=== PATIENT | female | born 1940 | race Caucasian/White ===

== ENCOUNTER 2019-12-11 09:50 | Inpatient (IN) | payer OTHER, MEDICAID ==
[2019-12-10 20:00] VITALS: BP_SYST 134
[~2019-12-11] VITALS: Ht 157.5 cm; Wt 73.5 kg
[~2019-12-11 09:50] MED LIST: APIX2.5T PO; CEPH-568 PO; METO25TA6 PO; [UNRECOGNIZED DRUG - OTHER] OP
[2019-12-11 10:00] VITALS: BP_SYST 148
--- NOTE | 2019-12-11 10:13 | NUR ---
Alton Parks at bedside examining patient.
--- NOTE | 2019-12-11 10:15 | NUR ---
took pt to CT scan via josias
[2019-12-11] MEDS ORDERED: NS 500 ML IV ONE (11:00)
[2019-12-11] MEDS ORDERED: PANTOPRAZOLE SODIUM 40 MG/VIAL (PROTONIX) IVP ONE (11:15)
--- NOTE | 2019-12-11 11:30 | NUR ---
pt is refusing to have an IV placed.
--- NOTE | 2019-12-11 11:54 | NUR ---
Pt is able to intake fluids w/out any chocking or difficulty.
[2019-12-11 12:11] LABS: BASOPHILS # (AUTO) 0.1 K/uL (0.0-0.2); BASOPHILS % (AUTO) 0.7 % (0.0-2.0); EOSINOPHILS % (AUTO) 0.5 % (0.0-4.0); HEMOGLOBIN 12.5 g/dL (12.0-16.0); LYMPHOCYTES # (AUTO) 1.3 K/uL (1.0-5.5); LYMPHOCYTES % (AUTO) 17.3 % (20.5-51.5); MEAN CORPUSCULAR HEMOGLOBIN 29 pg (27-31); MEAN CORPUSCULAR HGB CONC 33 % (32-36); MEAN CORPUSCULAR VOLUME 89 fL (79.0-98.0); MONOCYTES # (AUTO) 0.5 K/uL (0.0-1.0); MONOCYTES % (AUTO) 6.5 % (1.7-9.3); NEUTROPHILS # (AUTO) 5.7 K/uL (1.8-7.7); PLATELET COUNT (AUTO) 262 K/uL (130-430); RED BLOOD CELL COUNT(AUTO) 4.25 MIL/uL (4.2-6.2); RED CELL DISTRIBUTION WIDTH 14.7 % (9.0-15.0); WHITE BLOOD COUNT (AUTO) 7.6 K/uL (4.8-10.8)
[2019-12-11 12:25] LABS: ANION GAP 7 (5-15); CALCIUM 8.8 mg/dL (8.4-11.0); CHLORIDE 106 mmol/L (98-107); CREATININE 0.87 mg/dL (0.55-1.30); GLUCOSE 99 mg/dL (70-99); POTASSIUM 3.4 mmol/L (3.5-5.1); SODIUM SERUM 140 mmol/L (136-145); UREA NITROGEN, BLOOD 15 mg/dL (8-21)
[2019-12-11 12:31] LABS: ALANINE AMINOTRANSFERASE 20 U/L (12-78); ALBUMIN 3.3 g/dL (3.4-4.8); ASPARTATE AMINOTRANSFERASE 17 U/L (10-37); TOTAL BILIRUBIN 0.6 mg/dL (0.0-1.0)
--- NOTE | 2019-12-11 12:40 | NUR ---
# 22 gauge angiocath placed to lac. Use of asceptic technique. Opsite placed over site. Blood return noted. Blood for lab drawn from site. Flushed with 10 cc of normal saline. No evidence of infiltration noted. Patient tolerated well.
[2019-12-11] MEDS ORDERED: ASPIRIN 81 MG TAB.CHEW PO ONE (12:45)
--- NOTE | 2019-12-11 13:00 | NUR ---
NS 500ml infusing per MD order
--- NOTE | 2019-12-11 14:00 | NUR ---
assisted the pt w/ the bed seay
[2019-12-11 14:10] LABS: BILIRUBIN,URINE NEGATIVE (NEGATIVE); BLOOD, URINE NEGATIVE (NEGATIVE); CLARITY/URINE CLEAR (CLEAR); COLOR,URINE YELLOW (YELLOW); GLUCOSE,URINE NEGATIVE (NEGATIVE); KETONES,URINE NEGATIVE (NEGATIVE); LEUKOCYTE ESTERASE ,URINE TRACE (NEGATIVE); NITRITE, URINE NEGATIVE (NEGATIVE); PROTEIN URINE NEGATIVE (NEGATIVE); UROBILINOGEN,URINE 0.2 (0.2-1.0)
[2019-12-11 14:28] LABS: BACTERIA,URINE RARE /HPF (None Seen); RBC,URINE 0-3 /HPF (0-3); WBC,URINE 0-3 /HPF (0-3)
[2019-12-11] MEDS ORDERED: METOPROLOL TARTRATE 25 MG TABLET PO ONE ×2 (14:30→19:00)
--- NOTE | 2019-12-11 15:00 | NUR ---
pt will be admitted under the care of Dr. Addison. Orders received. Waiting for a tele bed
--- NOTE | 2019-12-11 16:15 | NUR ---
Medication reconciliation completed with information provided by pt. Any prior medication reconciliation on file was reviewed and corrected.
--- NOTE | 2019-12-11 16:41 | NUR ---
ADMIT NOTE Received pt from ER to the floor with a diagnosis of ELEVATED TROP. Admission process initiated. patient oriented to pain management, safety and call light-teach back done.
--- NOTE | 2019-12-11 16:45 | NUR ---
Patient will be admitted to care of Dr. Paulino. Admitted to tele unit. Will go to room 103-a. Belongings list completed. Complete and up to date summary report printed. Bedside report given to Shaniqua. IV is on the Left AC 22g, patent and infusing well. All belongings transported with the pt.
[2019-12-11 19:00] VITALS: BP_SYST 134
[2019-12-11 20:00] VITALS: BP_SYST 134
--- NOTE | 2019-12-11 20:00 | NUR ---
Initial note: Received report from dayshift RN. Patient is awake in bed, no acute distress. Even and unlabored breathing on room air. IV site to left AC, 22 gauge intact. Call light is with patient. Safety, fall, aspiration precautions in place. Will continue with plan of care.
[2019-12-11 20:25] LABS: CHOLESTEROL 191 mg/dL (<200); HDL CHOLESTEROL 67 mg/dL (>55); LDL CHOLESTEROL 107 mg/dL (<100); TRIGLYCERIDES 56 mg/dL (30-150)
[2019-12-11] MEDS: APIXABAN 2.5 MG TABLET PO SCH (20:31)
--- NOTE | 2019-12-11 22:05 | NUR ---
Bedpan: Assisted patient with bedpan, patient able to void 300 ML yellow urine. Patient kept clean and dry. Call light with patient. Will continue monitoring.
[2019-12-12 00:17] VITALS: BP_SYST 121
--- NOTE | 2019-12-12 00:58 | NUR ---
Rounds: Patient is asleep, no acute distress. Even, unlabored breathing on room air. IV site intact. Call light with patient. Will continue monitoring.
[2019-12-12 03:32] LABS: BASOPHILS # (AUTO) 0.1 K/uL (0.0-0.2); BASOPHILS % (AUTO) 1.1 % (0.0-2.0); EOSINOPHILS # (AUTO) 0.2 K/uL (0.0-0.4); EOSINOPHILS % (AUTO) 3.2 % (0.0-4.0); HEMATOCRIT 33.9 % (36-48); HEMOGLOBIN 11.3 g/dL (12.0-16.0); LYMPHOCYTES # (AUTO) 1.5 K/uL (1.0-5.5); LYMPHOCYTES % (AUTO) 27.4 % (20.5-51.5); MEAN CORPUSCULAR HEMOGLOBIN 30 pg (27-31); MEAN CORPUSCULAR HGB CONC 34 % (32-36); MEAN CORPUSCULAR VOLUME 90 fL (79.0-98.0); MONOCYTES # (AUTO) 0.5 K/uL (0.0-1.0); MONOCYTES % (AUTO) 9.3 % (1.7-9.3); NEUTROPHILS # (AUTO) 3.3 K/uL (1.8-7.7); PLATELET COUNT (AUTO) 217 K/uL (130-430); RED BLOOD CELL COUNT(AUTO) 3.77 MIL/uL (4.2-6.2); RED CELL DISTRIBUTION WIDTH 14.3 % (9.0-15.0); WHITE BLOOD COUNT (AUTO) 5.5 K/uL (4.8-10.8)
--- NOTE | 2019-12-12 03:37 | NUR ---
Incontinence care: Patient urinated onto pad underneath. Partial bed bath and linen change rendered. Patient tolerated well. Call light with patient. Will continue to monitor.
[2019-12-12 03:42] LABS: INR 1.1 (0.8-1.2); PROTHROMBIN TIME 10.6 SECS (9.5-12.5)
[2019-12-12 03:55] LABS: ALANINE AMINOTRANSFERASE 16 U/L (12-78); ALBUMIN 2.6 g/dL (3.4-4.8); ANION GAP 3 (5-15); ASPARTATE AMINOTRANSFERASE 16 U/L (10-37); CALCIUM 8.2 mg/dL (8.4-11.0); CHLORIDE 107 mmol/L (98-107); CREATININE 0.77 mg/dL (0.55-1.30); GLUCOSE 97 mg/dL (70-99); POTASSIUM 3.4 mmol/L (3.5-5.1); SODIUM SERUM 140 mmol/L (136-145); THYROID STIMULATING HORMONE 3.22 uIu/mL (0.36-3.74); TOTAL BILIRUBIN 0.6 mg/dL (0.0-1.0); UREA NITROGEN, BLOOD 13 mg/dL (8-21)
--- NOTE | 2019-12-12 06:06 | NUR ---
Closing note: Patient is resting in bed, no acute distress. Tolerating room air. IV site to left AC patent, intact. All needs met. Safety, fall, aspiration precautions observed. Hourly rounding performed throughout shift. Will endorse care to dayshift RN.
[2019-12-12 08:55] VITALS: BP_SYST 137
[2019-12-12] MEDS: METOPROLOL TARTRATE 25 MG TABLET PO SCH ×3 (09:00→21:00)
[2019-12-12] MEDS ORDERED: POTASSIUM CHLORIDE 20 MEQ TAB.PRT.SR PO ONE (09:00)
[2019-12-12] MEDS: ASPIRIN 81 MG TAB.CHEW PO SCH (09:03)
[2019-12-12] MEDS: APIXABAN 2.5 MG TABLET PO SCH ×2 (09:05→21:00)
--- NOTE | 2019-12-12 09:05 | NUR ---
Routine Schedule medications given per order. Patient resting comfortably in bed with no complaint of pain. Patient stable at this time.
--- NOTE | 2019-12-12 09:30 | NUR ---
Routine Ordered med given. Patient stable.
--- NOTE | 2019-12-12 10:45 | NUR ---
Nutrition Update Familia Scale 17 noted. Pt admitted for elevated troponin. Diet: 2 gm Na BMI: 29.6 kg/m2 RD to follow per nutrition care standards.
[2019-12-12 11:18] VITALS: BP_SYST 149
--- NOTE | 2019-12-12 14:00 | NUR ---
Routine Patient resting comfortably in bed with no complaint of pain or discomfort. Patient stable at this time.
--- NOTE | 2019-12-12 15:30 | NUR ---
Routine Patient resting quietly in bed with no distress noted; no complaint of pain or distress. Patient stable at this time.
[2019-12-12 15:53] VITALS: BP_SYST 151
--- NOTE | 2019-12-12 17:10 | NUR ---
Routine Patient resting in bed with complaint of 4/10 back pain. Patient states that she does not want pain medication, because her pain is due to a UTI. She does have a history of UTI, but WBC count today is 5.5 (down from 7.6 yesterday). Patient stable at this time. Addendum: 12/12/19 at 1748 by Camila Alston RN urinalysis (-), and urine culture in still in process
--- NOTE | 2019-12-12 18:30 | NUR ---
Routine Patient resting in bed with night ANDROID PROGRAMMER at bedside. Patient stable throughout shift.
--- NOTE | 2019-12-12 19:44 | NUR ---
Initial note: Report received from dayshift RN. Patient is resting in bed. Does not show any acute distress. Tolerating room air, even and unlabored respirations. IV site to left AC is patent and benign. No needs at this time. Call light is with patient. Safety, fall, aspiration precautions in place. Will continue with plan of care.
[2019-12-12 20:46] VITALS: BP_SYST 123
--- NOTE | 2019-12-12 21:46 | NUR ---
Medications refused: Patient is oriented to name, place, and situation. Patient refused to receive medications scheduled for 2100 despite educational efforts. Blood pressure and heart rate WNL. Call light with patient. Will continue to monitor.
--- NOTE | 2019-12-13 00:14 | NUR ---
Rounds: Patient is asleep, no acute distress. Even, unlabored breathing on room air. IV site intact. Call light with patient. Will continue monitoring.
[2019-12-13 01:00] VITALS: BP_SYST 115
--- NOTE | 2019-12-13 03:21 | NUR ---
Rounds: Patient is asleep in bed, no acute distress. Tolerating room air, even and unlabored breathing. IV site to left AC is intact. Call light is with patient. Will continue monitoring.
--- NOTE | 2019-12-13 06:02 | NUR ---
Closing note: Patient is resting in bed, no acute distress. No change in condition. All needs met. Safety, fall, aspiration precautions in place. Hourly rounds performed throughout shift. Will endorse care to dayshift RN.
[2019-12-13] MEDS: METOPROLOL TARTRATE 25 MG TABLET PO SCH (08:37)
[2019-12-13] MEDS: APIXABAN 2.5 MG TABLET PO SCH (08:37)
[2019-12-13] MEDS: ASPIRIN 81 MG TAB.CHEW PO SCH (08:37)
--- NOTE | 2019-12-13 08:39 | NUR ---
Routine Scheduled medications given per order. Patient resting comfortably in bed with no complaint of pain. Patient stable at this time.
[2019-12-13 08:40] VITALS: BP_SYST 132
[2019-12-13 10:41] VITALS: BP_SYST 132
--- NOTE | 2019-12-13 10:50 | NUR ---
Discharge instructions Both written and verbal discharge instructions given to patient. Patient verbalized understanding of instructions. All belongings with patient at this time.
[2019-12-13 11:12] VITALS: BP_SYST 147
--- NOTE | 2019-12-13 12:30 | NUR ---
Routine Patient resting comfortably in bed. Patient stable at this time.
--- NOTE | 2019-12-13 14:15 | NUR ---
Discharge Peripheral IV removed intact and dressing applied; no active bleeding. Patient tolerated well. Exit Care previously provided with discharge instructions. Patient discharged to home in stable condition.
--- NOTE | 2019-12-13 16:05 | NUR ---
RESOURCES: SPORT PSYCHOLOGIST provided pt with Outpatient Clinic and HH list.
--- NOTE | 2019-12-19 15:59 | NUR ---
Discharge Follow Up Phone Call Phoned patient, , and left a voicemail message with reminder to make follow up appointment, offer of assistance and Social Service contact information.
== END 2019-12-13 14:15 | disposition home or self-care (01) | DRG 281 ==
LOC: SED 09:50 → STU 14:21
PROVIDERS: ADMIT Internal Medicine Hospice and Palliative Medicine; ATTEND Internal Medicine Hospice and Palliative Medicine
DX: I21.A1 Myocardial infarction type 2 (principal); G45.9 Transient cerebral ischemic attack, unspecified; I42.0 Dilated cardiomyopathy; I48.0 Paroxysmal atrial fibrillation; I10 Essential (primary) hypertension; M81.0 Age-related osteoporosis without current pathological fracture; Z79.01 Long term (current) use of anticoagulants; Z79.899 Other long term (current) drug therapy; Z87.891 Personal history of nicotine dependence; Z95.810 Presence of automatic (implantable) cardiac defibrillator; Z88.8 Allergy status to other drugs, medicaments and biological substances; Z88.1 Allergy status to other antibiotic agents
CPT/HCPCS: 36415; 70450-TC; 71045; 80053; 80061; 81000-TC; 83605; 83880; 84443-TC; 84484; 85025; 85610-TC; 85730-TC; 87040-TC; 87086; 93005; 93306; 96374; 99291; C9113; G0378

== ENCOUNTER 2022-10-27 14:10 | Inpatient (IN) | payer OTHER, MEDICAID ==
[~2022-10-27] VITALS: Ht 157.5 cm; Wt 72.1 kg
[2022-10-27 14:10] VITALS: BP_SYST 143
[~2022-10-27 14:10] MED LIST changes: -CEPH-568 PO; -[UNRECOGNIZED DRUG - OTHER] OP
--- NOTE | 2022-10-27 14:30 | NUR ---
PATIENT BIBA FROM HOME C/O LEFT KNEE PAIN S/P FALL, PATIENT LIVES BY HERSELF NOTED FECES TO LEGS NOT WELL CLEAN, PLACE IN ROOM 3 AAOX 4 PATIENT ON PHYSICIAN IN PRIVATE PRACTICE, AWAITING FOR EDP ASSIGNMENT.
[2022-10-27] MEDS ORDERED: ACETAMINOPHEN 325 MG TABLET PO ONE (14:45)
--- NOTE | 2022-10-27 15:40 | NUR ---
EDP SEEN PATIENT WITH ORDER ARMINDA OUT.
--- NOTE | 2022-10-27 15:55 | NUR ---
SON AT BEDSIDE, AWAITING FOR DISPOSITION.
--- NOTE | 2022-10-27 16:28 | NUR ---
ALL RESULT BACK EDP MADE AWARE WITH DISPOSITION, PATION PER SON IS UNABLE TO TAKE CARE OF HERSELF.
--- NOTE | 2022-10-27 17:12 | NUR ---
PATIENT REFUSES IV INSERTION AT THIS TIME, STATES SHE IS THINKING ABOUT IT.
--- NOTE | 2022-10-28 00:51 | NUR ---
PT IS SOILED AND IS REFUSING TO LET NURSE CHANGE HER. PT STATES I NEED MY WALKER AND I CAN GET UP. PT UNABLE TO WALK DUE TO SWELLING OF LEGS.
[2022-10-28 01:49] LABS: BASOPHILS # (AUTO) 0.1 K/uL (0.0-0.2); BASOPHILS % (AUTO) 0.9 % (0.0-2.0); EOSINOPHILS # (AUTO) 0.2 K/uL (0.0-0.4); EOSINOPHILS % (AUTO) 3.6 % (0.0-4.0); HEMATOCRIT 33.8 % (36-48); HEMOGLOBIN 11.5 g/dL (12.0-16.0); LYMPHOCYTES # (AUTO) 1.5 K/uL (1.0-5.5); MEAN CORPUSCULAR HEMOGLOBIN 30 pg (27-31); MEAN CORPUSCULAR HGB CONC 34 % (32-36); MEAN CORPUSCULAR VOLUME 88 fL (79.0-98.0); MONOCYTES # (AUTO) 0.6 K/uL (0.0-1.0); NEUTROPHILS # (AUTO) 3.8 K/uL (1.8-7.7); NEUTROPHILS % (AUTO) 61.5 % (40.0-70.0); PLATELET COUNT (AUTO) 317 K/uL (130-430); RED BLOOD CELL COUNT(AUTO) 3.85 MIL/uL (4.2-6.2); RED CELL DISTRIBUTION WIDTH 14.2 % (9.0-15.0); WHITE BLOOD COUNT (AUTO) 6.2 K/uL (4.8-10.8)
[2022-10-28 02:08] LABS: ANION GAP 8 (5-15); CALCIUM 8.9 mg/dL (8.4-11.0); CHLORIDE 105 mmol/L (98-107); CREATININE 0.83 mg/dL (0.55-1.30); GLUCOSE 104 mg/dL (70-99); UREA NITROGEN, BLOOD 21 mg/dL (8-21)
[2022-10-28 02:18] LABS: ALANINE AMINOTRANSFERASE 15 U/L (12-78); ALBUMIN 2.9 g/dL (3.4-4.8); ASPARTATE AMINOTRANSFERASE 21 U/L (10-37); TOTAL BILIRUBIN 0.6 mg/dL (0.0-1.0)
--- NOTE | 2022-10-28 07:02 | NUR ---
PT REFUSING TO BE ADMITTED TO HOSPITAL, PT ADAMANT ABOUT GOING HOME. PT ATTEMPTED TO AMBULATE AND UNABLE. PT UNABLE TO PUT LEFT FOOT ON FLOOR. DR BUCK AT BEDSIDE. ENCOURAGED PT TO BE ADMITTED TO GET BETTER. PT SCREAMING AT STAFF. PT FULLY SOILDED WITH URINE, CLEANED AND PLACED BACK TO BED.
[2022-10-28] MEDS ORDERED: LORazepam 2 MG/ML VIAL ONE (07:16)
--- NOTE | 2022-10-28 07:21 | NUR ---
per dr gaines ordered to remove 2 mg of ativan to be given to pt. primary nurse did not push medication. Dr gaines at bedside giving medication for pt. medication will be scanned by pc nurse but was not admionistered by nurse.
[2022-10-28] MEDS ORDERED: LORazepam 2 MG/ML VIAL IVP ONE (07:30)
--- NOTE | 2022-10-28 08:53 | NUR ---
PT MOVED CLOSER TO NURSING STATION FOR OBSERVATION. PT IS RESTLESS C/O DISCOMFORT TO INNER THIGH AREA, INNER THIGH IS PINK AND WARM AND DRY. NOTIFIED MD. SWELLING TO BILATERAL LOWER EXTREMITIES.
--- NOTE | 2022-10-28 09:40 | NUR ---
DR. MCGEE PAGED FOR PATIENT. DR. MCGEE DISCUSSED THE PT'S CASE W/ DR. BUCK. DR. MCGEE AGREES AND WILL ADMIT THE PT. ADMIT ORDERS TAKEN TO DILLON MCGRATH.
--- NOTE | 2022-10-28 09:46 | NUR ---
Admit bed requested Patient will be admitted to care of . Admitted to Tele unit. 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
[2022-10-28] MEDS ORDERED: NACL 0.9% 1,000 ML IV ONE (10:45)
--- NOTE | 2022-10-28 12:30 | NUR ---
ADMIT NOTES ASLEEP BUT VERY COMBATIVE ONCE SHE'S AWAKE, HITTING STAFF BY WENT BACK TO SLEEP ONCE YOU LEAVE HER ALONE, NO IV SITE, REFUSED AND UNABLE TO HOLD HER ARM, FIGHT WITH THE STAFF. BILATERAL LOWER EXTREMITIES EDEMA, WITH RASHES, SCRATCHES AND SCAB, PERINEAL AREA AND BUTTOCKS AREA, EXCORIATED, REDNESS, SKIN CARE PROVIDED TO PATIENT.
--- NOTE | 2022-10-28 13:20 | NUR ---
CONSULTATION PAGED REASON FOR CONSULTATION LONG STEMI WAS CONSULT CALED?Y PERSON WHO WAS NOTIFIED:NAYAN CONSULTING PHYSICIAN:JASSI KHAN UTILITY SPRAY OPERATOR SPECIALTY:CARDIO UTILITY SPRAY OPERATOR PHONE NUMBER:[phone] REQUESTING PHYSICIAN:ROXANA GONZALEZ
[2022-10-28 14:33] VITALS: BP_SYST 129
[2022-10-28 14:49] VITALS: BP_SYST 129
[2022-10-28] MEDS ORDERED: ASPI-1155 PO (15:06)
--- NOTE | 2022-10-28 15:30 | NUR ---
NOTES ASLEEP BUT ABLE TO WAKE UP WHEN CALLED BY NAME. STILL AGITATED AND WANTS STAFF TO LEAVE HER ALONE, SON MADE AWARE THAT PATIENT IS COMBATIVE, HISTORY TAKEN FROM SON.
[2022-10-28 16:30] VITALS: BP_SYST 131
--- NOTE | 2022-10-28 17:11 | NUR ---
Patient will be admitted to [facility]. Admitted to TELE unit. Belongings list completed. Complete and up to date summary report printed. SBAR report to be given at bedside with opportunity for questions.
[2022-10-28] MEDS ORDERED: LORazepam 2 MG/ML VIAL IM PRN (17:45)
--- NOTE | 2022-10-28 19:00 | NUR ---
NOTES TRIED TO RE INSERT IV, STILL COMBATIVE, UNABLE TO TOUCH THE PATIENT, TRIED TO HIT THE STAFF. WITNESS BY CINDY VEGA.
[2022-10-28 20:00] VITALS: BP_SYST 137
[2022-10-28 20:59] VITALS: BP_SYST 137
[2022-10-28] MEDS: METOPROLOL TARTRATE 25 MG TABLET PO SCH (21:00)
[2022-10-29 00:41] VITALS: BP_SYST 144
--- NOTE | 2022-10-29 05:41 | NUR ---
offered hygiene to the patient twice she refused and very combative once you tried to touch her.she only wants to sleep.
--- NOTE | 2022-10-29 08:17 | NUR ---
Patient is alert, oriented but appeared to have periods of confusion. She refused majority of care and treatment during the shift, and she is very combative. Patient also refused to take her scheduled medication at 2100, charge nurse is aware. When the charge went into the room, patient did not acknowledge the charge nurse, and she was drowsy. The initial vitals were stable, and subsequent vitals taken by CONTACT ACID PLANT OPERATOR. Safety is maintained with use of bed alarm.
[2022-10-29 08:50] VITALS: BP_SYST 134
[2022-10-29 11:26] VITALS: BP_SYST 142
[2022-10-29] MEDS: ASPIRIN 81 MG TAB.CHEW PO SCH (12:08)
[2022-10-29] MEDS: METOPROLOL TARTRATE 25 MG TABLET PO SCH ×2 (12:10→21:43)
[2022-10-29 15:24] VITALS: BP_SYST 111
[2022-10-29 20:00] VITALS: BP_SYST 132
--- NOTE | 2022-10-29 20:03 | NUR ---
PATIENT REMAINS CONFUSED AND UNCOOPERATIVE TOMOST CARE ROUTINE, REFUSES IV, ACCUSES STAFF OF RANDOM ACTS AND IS INTERMITTENTLY VERBALLY AGGRESSIVE. PATIENT REDIRECTED. PLAN OF CARE ENDORSEDTO NIGHTSHIFT
[2022-10-30] VITALS: BP_SYST 120
[2022-10-30 07:47] LABS: BASOPHILS # (AUTO) 0.1 K/uL (0.0-0.2); BASOPHILS % (AUTO) 0.9 % (0.0-2.0); EOSINOPHILS # (AUTO) 0.4 K/uL (0.0-0.4); EOSINOPHILS % (AUTO) 6.2 % (0.0-4.0); HEMATOCRIT 32.5 % (36-48); HEMOGLOBIN 11.1 g/dL (12.0-16.0); LYMPHOCYTES # (AUTO) 1.5 K/uL (1.0-5.5); LYMPHOCYTES % (AUTO) 26.1 % (20.5-51.5); MEAN CORPUSCULAR HEMOGLOBIN 30 pg (27-31); MEAN CORPUSCULAR HGB CONC 34 % (32-36); MEAN CORPUSCULAR VOLUME 88 fL (79.0-98.0); MONOCYTES # (AUTO) 0.7 K/uL (0.0-1.0); MONOCYTES % (AUTO) 11.6 % (1.7-9.3); NEUTROPHILS # (AUTO) 3.2 K/uL (1.8-7.7); NEUTROPHILS % (AUTO) 55.2 % (40.0-70.0); PLATELET COUNT (AUTO) 276 K/uL (130-430); RED BLOOD CELL COUNT(AUTO) 3.68 MIL/uL (4.2-6.2); RED CELL DISTRIBUTION WIDTH 13.9 % (9.0-15.0); WHITE BLOOD COUNT (AUTO) 5.7 K/uL (4.8-10.8)
--- NOTE | 2022-10-30 07:53 | NUR ---
Patient is alert, but continues to refuse labs. This was endorsed to the oncoming nurse Taco, to inform the physician. No request for pain medication. She did allow cleaning on this day as opposed to yesterday, and she did take her scheduled medication. Patient has ability to turn self with limitation to LUE, evidenced by turning herself while nurse was cleaning her, she had one soft BM with urine, and two more bouts of urine incontinence. Safety is maintained with bed alarm.
[2022-10-30 08:17] VITALS: BP_SYST 126
[2022-10-30 08:17] LABS: ANION GAP 6 (5-15); CALCIUM 8.4 mg/dL (8.4-11.0); CHLORIDE 107 mmol/L (98-107); CREATININE 0.73 mg/dL (0.55-1.30); GLUCOSE 102 mg/dL (70-99); UREA NITROGEN, BLOOD 13 mg/dL (8-21)
--- NOTE | 2022-10-30 08:20 | NUR ---
Report received from motion graphics artist RN for continuity of care. Patient stable at the moment. Vitals stable.
--- NOTE | 2022-10-30 08:53 | NUR ---
Reported to Dr. Barrientos regarding Troponin 501 and patient refusing IV.
[2022-10-30] MEDS: METOPROLOL TARTRATE 25 MG TABLET PO SCH ×3 (09:00→21:00)
[2022-10-30] MEDS: ASPIRIN 81 MG TAB.CHEW PO SCH (09:18)
[2022-10-30 11:30] VITALS: BP_SYST 100
--- NOTE | 2022-10-30 11:51 | NUR ---
SEE THE INITIAL EVALUATION WHICH WAS PERFORMED YESTERDAY.
[2022-10-30 15:33] VITALS: BP_SYST 127
[2022-10-30 19:00] VITALS: BP_SYST 127
--- NOTE | 2022-10-30 19:51 | NUR ---
Report given to mine shifter nurse for continuity of care. No distress noted.
[2022-10-30 20:00] VITALS: BP_SYST 127
[2022-10-31] VITALS: BP_SYST 130
--- NOTE | 2022-10-31 07:20 | NUR ---
MORNING ROUNDS: PATIENT RESTING DURING ROUNDS. CALL LIGHT WITH IN REACH. SAFETY MEASURES RENDERED.NOT IN ANY DISTRESS.
[2022-10-31 08:00] VITALS: BP_SYST 126
--- NOTE | 2022-10-31 08:30 | NUR ---
NO IV ACCESS: PATIENT REFUSED IV ACCESS. AWARE.
--- NOTE | 2022-10-31 08:42 | NUR ---
Dietitian recommendations: 1. Suggest to change to a regular diet to promote PO intake. 2. Continue to encourage PO intake. 3. Consider daily multivitamin for micronutrient coverage. Please refer to nutrition assessment for details. IDANIA REECE
[2022-10-31] MEDS: METOPROLOL TARTRATE 25 MG TABLET PO SCH ×2 (09:00→22:11)
--- NOTE | 2022-10-31 10:00 | NUR ---
Refused med: Patient refused to take metoprolol because she wants to take her own meds. Will inform .
[2022-10-31] MEDS: ASPIRIN 81 MG TAB.CHEW PO SCH (10:35)
[2022-10-31] MEDS: ACETAMINOPHEN 325 MG TABLET PO PRN (12:14)
--- NOTE | 2022-10-31 12:18 | NUR ---
Tylenol po: Due tylenol 650mg po given per patient's request.
[2022-10-31 12:25] VITALS: BP_SYST 122
--- NOTE | 2022-10-31 14:00 | NUR ---
MD ROUNDS: DR MCGEE IN THE ROOM,TALKING TO THE PATIENT. NO NEW ORDERS MADE.
--- NOTE | 2022-10-31 15:10 | NUR ---
PATIENT REFUSED PHYSICAL THERAPY TODAY DUE TO C/O LEFT KNEE PAIN WITH MOVEMENT. SHE WAS GIVEN PAIN MEDS BY RN PRIOR, BUT STILL REFUSED.
--- NOTE | 2022-10-31 15:55 | NUR ---
Itching: Patient c/o itching,Called Md and spoke with Dr. Cool ,with orders give Vistaril 10 mg po tid prn for itching.
[2022-10-31 16:10] VITALS: BP_SYST 116
--- NOTE | 2022-10-31 18:53 | NUR ---
EVENING ROUNDS: PATIENT ATE DINNER. CALL LIGHT WITH IN REACH. BED LOCKED AT LOWEST POSITION. BED ALARM ON. SAFETY MEASURES RENDERED. NOT IN ANY DISTRESS.
--- NOTE | 2022-10-31 19:43 | NUR ---
Opening note Received SBAR report from ODALIS Douglass. Received patient resting in bed, eyes closed, symmetrical rise and fall of chest, no distress, on room air. Bed is locked in lowest position, side rails up 3x, bed alarm on and call light w/in reach.
[2022-10-31 20:00] VITALS: BP_SYST 102
[2022-11-01] VITALS: BP_SYST 133
[2022-11-01] MEDS: ACETAMINOPHEN 325 MG TABLET PO PRN ×2 (00:23→15:32)
--- NOTE | 2022-11-01 03:03 | NUR ---
Shift Summary: patient AAOX3. vitals are stable. patient updated on plan of care for shift upon start of shift. patient states she has no questions or concerns at this time. q2h turns started, call light within reach, bed set to low, locked ,and alarm on. will continue to monitor patient.
--- NOTE | 2022-11-01 07:40 | NUR ---
OPENING NOTES Received report from garment fitter RN. Patient is sleeping calmly in bed at this time. She does not display any s/s of pain or discomfort at this time. Call light was within reach and safety precautions observed. Patient does not have IV access at this time.
[2022-11-01 08:05] VITALS: BP_SYST 105
[2022-11-01] MEDS: ASPIRIN 81 MG TAB.CHEW PO SCH (09:53)
[2022-11-01] MEDS: METOPROLOL TARTRATE 25 MG TABLET PO SCH ×2 (09:54→20:47)
--- NOTE | 2022-11-01 11:00 | NUR ---
RN ROUNDS Patient is sitting in bed at this time. She complains of itching and knee pain at this time. Call light within reach, safety precautions observed. Cream was applied at this time.
[2022-11-01 11:16] VITALS: BP_SYST 103
--- NOTE | 2022-11-01 14:15 | NUR ---
RN ROUNDS Patient sitting in bed at this time. She complains of knee pain. Tylenol given. Will reassess in one hour. Call light within reach. Safety precautions observed.
[2022-11-01 15:24] VITALS: BP_SYST 101
--- NOTE | 2022-11-01 19:15 | NUR ---
OPENING NOTES Patient resting in bed - no s/s pain or distress noted. Respirations even and unlabored - head of bed elevated. IV site patent - no s/s redness, infection, or infiltration. Bed locked and in lowest position. Call light within reach - bed alarm on. Addendum: 11/02/22 at 0312 by Nnamdi Rasmussen RN correction: Patient has no IV access - patient has refused during dayshift and Dr. Barrientos made aware.
--- NOTE | 2022-11-01 19:15 | NUR ---
End of Shift: Endorsed to night nurse Nnamdi,patient in stable condition. No iv access,patient refused,MD aware.Safety measures rendered. No acute distress.
[2022-11-01 20:00] VITALS: BP_SYST 110
[2022-11-02] VITALS: BP_SYST 108
--- NOTE | 2022-11-02 07:48 | NUR ---
CLOSING NOTES Patient resting in bed - no s/s pain or distress noted. Respirations even and unlabored - head of bed elevated. NO IV SITE. Bed locked and in lowest position. Call light within reach - bed alarm on.
[2022-11-02] MEDS: METOPROLOL TARTRATE 25 MG TABLET PO SCH ×2 (09:00→20:19)
[2022-11-02] MEDS: ASPIRIN 81 MG TAB.CHEW PO SCH (09:40)
[2022-11-02] MEDS: ACETAMINOPHEN 325 MG TABLET PO PRN (09:43)
--- NOTE | 2022-11-02 09:44 | NUR ---
LATE ENTRY SPLICING MACHINE OPERATOR met with this pt. bedside on 10/30 in response to recieving a request to see pt. from Dr. Ryne Alex with concerns pt was unable to care for self at home. SPLICING MACHINE OPERATOR introduced self to pt who was awake and sitting upright in her bed. Pt. was vocal and freely expressed her displeasure in her food, staff, the hospital and just wanted to go home yaniv. Pt. stated she hated the food ,she didn't like the doctors and did not need anything. SPLICING MACHINE OPERATOR asked pt. who she resided with . Pt. was able to confirm her address and stated she lives at home by herself. When asked about her son, pt. stated he resides in [place] with his . Pt continued to say her son will check in on her when he is in town and not driving a truck. SPLICING MACHINE OPERATOR asked pt. about her daily tasks. Pt. cooks for self and her son will take her or go to purchase groceries. Pt. stated she is fine being at home and when it comes to rides, pt. uses [employer], . SPLICING MACHINE OPERATOR called the [employer] phone number, but it was not the correct number.SPLICING MACHINE OPERATOR will call son to get a clear picture of pts. home life and abilities to care for self.
[2022-11-02 11:40] VITALS: BP_SYST 130
[2022-11-02 15:30] VITALS: BP_SYST 112
[2022-11-02 20:00] VITALS: BP_SYST 110
--- NOTE | 2022-11-02 20:00 | NUR ---
Opening note- Pt awake and oriented. No s/sx of any distress. v/s stable afebrile. No iv access. Hx of Stroke with Lt side weakness.
--- NOTE | 2022-11-02 22:00 | NUR ---
Pt refused Metoprolol oral. Per pt she had allergic reaction to Metoprolol- dizziness.
[2022-11-03 00:12] VITALS: BP_SYST 109
[2022-11-03 01:57] VITALS: BP_SYST 123
--- NOTE | 2022-11-03 05:28 | NUR ---
Closing note- Pt remains stable. Incontinent of urine and bowel. Kept clean and dry. Applied barrier cream on perineal and left buttock-incontinent induced dermatitis.
[2022-11-03 08:00] VITALS: BP_SYST 114
[2022-11-03] MEDS: METOPROLOL TARTRATE 25 MG TABLET PO SCH ×2 (09:00→09:16)
[2022-11-03] MEDS: ASPIRIN 81 MG TAB.CHEW PO SCH (09:16)
[2022-11-03] MEDS: ACETAMINOPHEN 325 MG TABLET PO PRN (09:17)
--- NOTE | 2022-11-03 10:25 | NUR ---
Discharge Planning: OKP faxed pt referral to [facility] [phone] DCP to follow up Addendum: 11/03/22 at 1352 by Jen Meléndez DP [facility] [phone] accepted pt Addendum: 11/03/22 at 1608 by Jen Meléndez DP DCGerardo arranged transport with [facility] [phone] BLS 5:30pm requested to home [id number] [id number]. DCP made CM aware and pt packet taken to nurse station.
--- NOTE | 2022-11-03 14:31 | NUR ---
PLEASE SEE PHYSICAL THERAPY TREATMENT NOTES FROM TODAY AND PREVIOUS TREATMENTS.
[2022-11-03 15:51] VITALS: BP_SYST 117
--- NOTE | 2022-11-04 07:55 | NUR ---
PHYSICAL THERAPY CO-SIGN The Physical Therapy Progress Notes documented by Utility Manager have been reviewed. Reviewed/Co-Signed by: Lucas Pope Documentation Done by: MAGGI HURLEY PTA Addendum: 11/04/22 at 0755 by Lucas Pope PT Amended: Links added.
--- NOTE | 2022-11-11 11:52 | NUR ---
BEARING INSPECTOR ACSW Maria Guadalupe received call from patient's son Taiwo Rock requesting name of home health and/or PT providers ordered at patient's discharge. ACSW provided number reflected in case management notes. Mechanic And Welder will continue to be available as needed
== END 2022-11-03 20:23 | disposition home health service (06) | DRG 605 ==
LOC: SED 14:10 → STU 10-28 10:30 → SMU 10-30 15:44
PROVIDERS: ADMIT Internal Medicine; ATTEND Internal Medicine
DX: S80.02XA Contusion of left knee, initial encounter (principal); I42.0 Dilated cardiomyopathy; I24.8 Other forms of acute ischemic heart disease; I69.354 Hemiplegia and hemiparesis following cerebral infarction affecting left non-dominant side; E44.0 Moderate protein-calorie malnutrition; I87.8 Other specified disorders of veins; I48.91 Unspecified atrial fibrillation; W01.0XXA Fall on same level from slipping, tripping and stumbling without subsequent striking against object, initial encounter; Z20.822 Contact with and (suspected) exposure to COVID-19; Y93.89 Activity, other specified; Z88.1 Allergy status to other antibiotic agents; Z88.8 Allergy status to other drugs, medicaments and biological substances; Z79.899 Other long term (current) drug therapy; Z79.82 Long term (current) use of aspirin; Z95.810 Presence of automatic (implantable) cardiac defibrillator; Z87.891 Personal history of nicotine dependence; Y92.89 Other specified places as the place of occurrence of the external cause; Y99.8 Other external cause status
CPT/HCPCS: 36415; 71045; 73564; 80048; 80053; 82550; 83605; 83880; 84484; 85025; 87040; 93005; 93306; 96374; 97110-GP; 97116-GP; 97163-GP; 97530-GP; 99285; G0378; J2060

== ENCOUNTER 2023-08-20 16:28 | Emergency (ER) | payer OTHER, MEDICAID ==
[~2023-08-20] VITALS: Ht 162.6 cm; Wt 65.8 kg
[~2023-08-20 16:28] MED LIST changes: -APIX2.5T PO; +ASPI-1155 PO
[2023-08-20 16:30] VITALS: BP_SYST 100; PULSE 112; RESP 18; TEMP 98.3; O2SAT 98
[2023-08-21 02:05] VITALS: BP_SYST 110; PULSE 82; RESP 18; TEMP 97.7; O2SAT 92
== END 2023-08-21 02:00 | disposition home or self-care (01) ==
LOC: SED 16:28
DX: R19.7 Diarrhea, unspecified (principal); S09.90XA Unspecified injury of head, initial encounter; Z88.1 Allergy status to other antibiotic agents; Z88.5 Allergy status to narcotic agent; Z79.899 Other long term (current) drug therapy
CPT/HCPCS: 70450-TC; 76376; 99285